=== PATIENT | male | born 1995 | race Caucasian/White ===

== ENCOUNTER 2017-12-01 00:08 | Emergency (ER) | payer OTHER ==
[~2017-12-01] VITALS: Ht 182.9 cm; Wt 86.4 kg
[2017-12-01 00:14] VITALS: BP 143/91; TEMP 98.5
[2017-12-01 01:50] VITALS: PULSE 88
== END 2017-12-01 01:50 | disposition home or self-care (01) ==
LOC: COL.ER 00:08
DX: S93.401A Sprain of unspecified ligament of right ankle, initial encounter (principal); F17.200 Nicotine dependence, unspecified, uncomplicated; Z88.0 Allergy status to penicillin; X50.0XXA Overexertion from strenuous movement or load, initial encounter; Y92.410 Unspecified street and highway as the place of occurrence of the external cause